=== PATIENT | male | born 1950 | race Caucasian/White ===

== ENCOUNTER → 2017-10-31 | Emergency (ER) | payer OTHER ==
[~2017-10-31] VITALS: Ht 172.7 cm; Wt 104.3 kg
[~2017-10-31] MED LIST: ASA 325MG EC TAB PO; AVALIDE 150-12.1 TA1; AVALIDE 300-12.1 TAB PO; AVAPRO300 MG PO; BACTRIM DS TAB1 EACH PO; CARAFATE1 G; CARAFATE1 GM PO; FAMOTIDINE20 MG PO; HUMALOG100 UNIT/1; HUMALOG100 UNIT/1 SUBCUTANEO; HYDROCHLOROTH12.5 M1 PO; INTESTINEX680 M1 PO; KETO10TA2 PO; LEVAQUIN750 MG PO; Lantus 1000 U/10 ML SUBCUTANEO; METFORMIN HCL500 M3; METFORMIN HCL500 MG; PEPCID20 MG; PLAVIX 75MG PO; PNEU16DI2; TOPROL XL25 M1 PO; Toprol Xl 25MG TAB PO; XARELTO15 MG; XARELTO15 MG PO; XARELTO20 MG; ZOCOR20 MG PO; ZOCOR40 MG; ZoCOR 40MG TABLET PO
== END | disposition home or self-care (01) ==
LOC: ER 09:09
DX: E11.65 Type 2 diabetes mellitus with hyperglycemia (principal); N39.0 Urinary tract infection, site not specified

== ENCOUNTER 2018-01-17 13:32 | Outpatient (CLI) | payer OTHER | END 2018-01-17 14:00 | disposition home or self-care (01) | LOC: NUCLEAR 13:32 | DX: I73.9 Peripheral vascular disease, unspecified (principal) ==

== ENCOUNTER 2018-01-18 14:28 | Outpatient (CLI) | payer OTHER | END 2018-01-18 15:00 | disposition home or self-care (01) | LOC: NUCLEAR 14:28 | DX: I73.9 Peripheral vascular disease, unspecified (principal); I87.2 Venous insufficiency (chronic) (peripheral) ==